=== PATIENT | male | born 1970 | race Caucasian/White ===

== ENCOUNTER → 2016-12-10 | Outpatient (CLI) | payer OTHER ==
[2016-12-10 15:08] LABS: HEMOGLOBIN 17.3 g/dL (14.1-18.0)
[2016-12-10 15:09] LABS: LYMPH # 1.5 K/mm3 (0.7-4.5); LYMPH % 29.7 % (10-50)
[2016-12-10 17:00] LABS: BUN 13 mg/dL (7-18)
[2016-12-10 17:06] LABS: GFR (ESTIMATED) 90 ML/MIN (>60)
== END ==
LOC: LAB 14:32
PROVIDERS: Internal Medicine Adolescent Medicine
DX: R03.0 Elevated blood-pressure reading, without diagnosis of hypertension (principal); R53.83 Other fatigue